=== PATIENT | male | born 1940 | race Caucasian/White ===

== ENCOUNTER 2021-10-28 07:38 | Emergency (ER) | payer MEDICARE, OTHER ==
[~2021-10-28] VITALS: Ht 170.2 cm; Wt 70.3 kg
[~2021-10-28 07:38] MED LIST: ADULT LOW DOSE81 MG PO; ALLOPURINOL300 MG PO; ASPIRIN325 MG PO; CIPROFLOXACIN500 MG PO; FLAGYL250 MG PO; HYDREA500 MG PO; LISINOPRIL-HCT1 EAC2 PO; LISINOPRIL5 MG PO; METOPROLOL TART50 MG PO; OCUVITE TABLET1 EAC1 PO; PERCOCET 5-3251 EACH PO; PERCOCET 7.5-31 EACH PO
--- OUTSIDE RECORDS SUMMARY | 2021-10-28 07:40 | XMS ---
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 Grace has no Care Guidelines for this patient. [facility] V[facility] (12 MO.) [facility] NOTE: Visits indicate total known visits. ED/C VISIT TRACKING (12 MO.) [facility]21 07[facility] COMPLAINT: - BACK PAIN 10/24/2021 18:57 [facility] [place] TYPE: Emergency COMPLAINT: - FLANK PAIN INPATIENT VISIT TRACKING (12 MO.) No inpatient visits to display in this time frame [id number]
[2021-10-28] MEDS ORDERED: CEFDINIR300 MG PO (08:00)
[2021-10-28] MEDS ORDERED: ONDANSETRON ODT8 MG PO ×2 (08:01→11:18)
[2021-10-28] MEDS ORDERED: OXYCODONE-ACET1 EAC1 PO (08:02)
[2021-10-28] MEDS ORDERED: ACETAMINOPHEN-1 EAC3 PO (08:05)
[2021-10-28] MEDS ORDERED: PERCOCET 5-3251 EACH PO (11:18)
== END 2021-10-28 11:30 | disposition home or self-care (01) ==
LOC: ED 07:38
DX: N18.9 Chronic kidney disease, unspecified (principal); Z85.528 Personal history of other malignant neoplasm of kidney; M10.9 Gout, unspecified; Z79.899 Other long term (current) drug therapy
CPT/HCPCS: 36415; 80053; 81001; 83690; 85025; 85060; 96361; 96374; 99284-25; A9270; J2405; J7030